=== PATIENT | female | born 1970 | race Caucasian/White ===

== ENCOUNTER → 2021-04-04 | Outpatient (CLI) | payer BC ==
--- NOTE | 2021-04-05 11:39 | MM ---
Reason for exam: screening (asymptomatic). Last mammogram was performed 5 years and 7 months ago. History: Patient is postmenopausal and is nulliparous. Physical Findings: A clinical breast exam by your physician is recommended on an annual basis and results should be correlated with mammographic findings. MG 3D Screening Mammo W/Cad Bilateral CC and MLO view(s) were taken. Prior study comparison: September 13, 2015, bilateral MG screening mammo w CAD. March 24, 2014, left breast MG work up mamm w CAD LT. The breast tissue is heterogeneously dense. This may lower the sensitivity of mammography. No significant changes when compared with prior studies. ASSESSMENT: Benign, BI-RAD 2 RECOMMENDATION: Routine screening mammogram of both breasts in 1 year.
== END | disposition home or self-care (01) ==
LOC: RADMAMWWP 15:51
PROVIDERS: ATTEND Internal Medicine Geriatric Medicine
DX: Z12.31 Encounter for screening mammogram for malignant neoplasm of breast (principal); Z78.0 Asymptomatic menopausal state
CPT/HCPCS: 77063; 77067

== ENCOUNTER → 2022-12-04 | Outpatient (CLI) | payer BC ==
--- NOTE | 2022-12-05 09:03 | MM ---
Reason for Exam: Screening (asymptomatic). Last mammogram was performed 1 year(s) and 8 month(s) ago. Patient History: Menarche at age 7. Patient has no children. Postmenopausal. Sister had ovarian cancer, age 57. Risk Values: Laine 5 year model risk: 1.4%. NCI Lifetime model risk: 10.1%. Prior Study Comparison: 03/24/2014 Left Diagnostic Mammogram, [facility]. 09/13/2015 Bilateral Screening Mammogram, [facility]. 04/04/2021 Bilateral Screening Mammogram, [facility]. Tissue Density: The breast tissue is heterogeneously dense. This may lower the sensitivity of mammography. Findings: Analyzed By CAD. There is no suspicious group of microcalcifications or new suspicious mass in either breast. Overall Assessment: Negative, BI-RAD 1 Management: Screening Mammogram of both breasts in 1 year. A clinical breast exam by your physician is recommended on an annual basis and results should be correlated with mammographic findings. Electronically signed and approved by: Tony Peralta D.O.
== END | disposition home or self-care (01) ==
LOC: RADMAMWWP 09:39
PROVIDERS: ATTEND Internal Medicine Geriatric Medicine
DX: Z12.31 Encounter for screening mammogram for malignant neoplasm of breast (principal); Z78.0 Asymptomatic menopausal state
CPT/HCPCS: 77063; 77067

== ENCOUNTER → 2023-01-02 | Outpatient (CLI) | payer BC ==
--- NOTE | 2023-01-02 14:42 | USB ---
Reason for Exam: Clinical finding. Patient History: Menarche at age 7. Patient has no children. Postmenopausal. Sister had ovarian cancer, age 57. Risk Values: Laine 5 year model risk: 1.4%. NCI Lifetime model risk: 10.1%. Technique: Method: Whole Breast Handheld. Prior Study Comparison: 09/13/2015 Bilateral Screening Mammogram, [facility]. 04/04/2021 Bilateral Screening Mammogram, [facility]. 12/04/2022 Bilateral MG 3D screening mammo w/cad, [facility]. Findings: The whole breast of both breasts, the axilla of both breasts and the retroareolar of both breasts were scanned. There is a 0.7 x 0.3 cm simple-appearing cyst at the 12:00 position 6 cm from nipple left breast. No additional cystic or solid areas are evident within the bilateral breasts.. Overall Assessment: Benign, BI-RAD 2 Management: Screening Mammogram of both breasts in 1 year. A clinical breast exam by your physician is recommended on an annual basis and results should be correlated with mammographic findings. This exam should not preclude additional follow-up of suspicious palpable abnormalities. Results were given to the patient verbally at the time of exam. Electronically signed and approved by: Boo Campa D.O. Radiologis
== END | disposition home or self-care (01) ==
LOC: RADUSWWP 13:48
PROVIDERS: ATTEND Internal Medicine Geriatric Medicine
DX: N64.4 Mastodynia (principal); Z78.0 Asymptomatic menopausal state

== ENCOUNTER → 2024-03-22 | Outpatient (CLI) | payer BC ==
--- NOTE | 2024-03-30 08:17 | MM ---
Reason for Exam: Screening (asymptomatic). Last mammogram was performed 1 year(s) and 4 month(s) ago. Patient History: Menarche at age 7. Patient has no children. Postmenopausal. Sister had ovarian cancer, age 57. Risk Values: Laine 5 year model risk: 1.5%. NCI Lifetime model risk: 9.7%. Prior Study Comparison: 09/13/2015 Bilateral Screening Mammogram, [facility]. 04/04/2021 Bilateral Screening Mammogram, [facility]. 12/04/2022 Bilateral MG 3D screening mammo w/cad, [facility]. Tissue Density: The breasts are heterogeneously dense, which may obscure small masses. Findings: Analyzed By CAD. The pattern is symmetrical. There is an increasing group of punctate calcifications in the posterior upper 12:00 left breast. Indication views recommended. Right breast:No suspicious groups of microcalcifications, spiculated or lobular masses, architectural distortion or other secondary signs of malignancy are mammographically apparent. Overall Assessment: Incomplete: need additional imaging evaluation, BI-RAD 0 Management: Diagnostic Mammogram of the left breast. A negative mammogram report should not preclude additional follow up of suspicious palpable abnormalities. Patient should continue monthly self breast exam. A clinical breast exam by your physician is recommended on an annual basis and results should be correlated with mammographic findings. Note on Laine scores and lifetime risk: 1. A Laine score greater than 3% is considered moderate risk. If this is the case, consider specialist referral to assess eligibility for a risk reducing agent. 2. If overall lifetime risk for the development of breast cancer is 20% or higher, the patient may qualify for future screening with alternating mammogram and breast MRI. Electronically signed and approved by: Boo Campa D.O. Radiologis
== END | disposition home or self-care (01) ==
LOC: RADMAMWWP 06:47
PROVIDERS: ATTEND Internal Medicine Geriatric Medicine
DX: Z12.31 Encounter for screening mammogram for malignant neoplasm of breast (principal); Z78.0 Asymptomatic menopausal state
CPT/HCPCS: 77063; 77067

== ENCOUNTER → 2024-04-12 | Outpatient (CLI) | payer BC ==
--- NOTE | 2024-04-12 09:20 | MM ---
Reason for Exam: Additional evaluation requested from abnormal screening. Last screening mammogram was performed less than 1 month ago. Patient History: Menarche at age 7. Patient has no children. Postmenopausal. Sister had ovarian cancer, age 57. Risk Values: Laine 5 year model risk: 1.5%. NCI Lifetime model risk: 9.7%. Prior Study Comparison: 02/17/2014 Bilateral Screening Mammogram, [facility]. 03/24/2014 Left Diagnostic Mammogram, [facility]. 09/13/2015 Bilateral Screening Mammogram, [facility]. 04/04/2021 Bilateral Screening Mammogram, [facility]. 12/04/2022 Bilateral MG 3D screening mammo w/cad, [facility]. 03/22/2024 Bilateral MG 3D screening mammo w/cad, [facility]. Tissue Density: Left: The breasts are heterogeneously dense, which may obscure small masses. Findings: Analyzed By CAD. Indeterminate microcalcifications upper slightly outer left breast 14 cm from the nipple. Tissue diagnosis is recommended. Overall Assessment: Suspicious, BI-RAD 4 Management: Stereotactic Core Biopsy of the left breast. . Results were given to the patient verbally at the time of exam. Patient should continue monthly self-breast exams. A clinical breast exam by your physician is recommended on an annual basis. This exam should not preclude additional follow-up of suspicious palpable abnormalities. Note on Laine scores and lifetime risk: 1. A Laine score greater than 3% is considered moderate risk. If this is the case, consider specialist referral to assess eligibility for a risk reducing agent. 2. If overall lifetime risk for the development of breast cancer is 20% or higher, the patient may qualify for future screening with alternating mammogram and breast MRI. Electronically signed and approved by: Irineo Payne M.D. Radiologis
== END | disposition home or self-care (01) ==
LOC: RADMAMWWP 08:15
PROVIDERS: ATTEND Internal Medicine Geriatric Medicine
DX: R92.332 Mammographic heterogeneous density, left breast (principal); R92.8 Other abnormal and inconclusive findings on diagnostic imaging of breast; Z78.0 Asymptomatic menopausal state
CPT/HCPCS: 77061; 77065

== ENCOUNTER → 2024-04-28 | Day surgery (SDC) | payer BC ==
--- NOTE | 2024-05-19 10:45 | MM ---
OPERATIVE REPORT DATE OF SERVICE: 04/28/24 PROCEDURE: Stereotactic core biopsy, left breast. PREPROCEDURE DIAGNOSIS: Microcalcifications of concern, left breast. POSTPROCEDURE DIAGNOSIS: Microcalcifications of concern, left breast. DESCRIPTION OF PROCEDURE: Following informed consent, the patient was brought to the stereotactic core biopsy room. She was positioned in the upright chair. A Director Process Engineering film was obtained of the left breast with a [id number] approach utilized. The lesion of concern was identified. The breast was prepped using chlorhexidine. 20 mL of 1% lidocaine was used to anesthetize the area of concern. a 9-gauge vacuum-assisted core rotating biopsy needle was driven to the correct corners. A pre-fire film was obtained. The needle was noted to be in the correct location. The needle was fired. Fourteen core biopsy specimens were obtained. Radiograph of the specimen revealed minimal calcifications; therefore, the needle was repositioned. The patient had additional core biopsies obtained, 13, and radiograph revealed that the calcifications of concern had been removed. [employer] top hat clip was placed. Post procedure, the area of concern was noted to be adequately sampled; however, the clip had migrated inferiorly, approximately 6cm. The patient tolerated the procedure in stable condition. She will follow up with Dr. Vaca next week. The specimen was sent to pathology. [facility]
--- NOTE | 2024-06-02 09:07 | WWHP ---
[facility] - HISTORY AND PHYSICAL HISTORY OF PRESENT ILLNESS: Lori is a 54-year-old female, status post routine screening mammogram, which recommended a repeat left breast mammogram. I do not have the bilateral mammogram results report, but I do have the report of the repeat left breast mammogram from 04/12/2024. This revealed indeterminate microcalcifications slightly at her left breast 14 cm from the nipple. Tissue diagnosis was recommended. She does not feel any lumps, masses, or nodules of concern in either breasts. She was not complaining of any skin changes. She has not had any surgery on her breast. Caffeine: Negative. Nicotine: Negative. Chocolate: Daily. control pill/hormones: She stopped control pills in her 20s. FAMILY HISTORY: Sister, ovarian cancer, at 60. Genetic testing was not done. HORMONAL HISTORY: Menarche: 7. G0. Breasts negative. Menopause: 49. SOCIAL HISTORY: Nicotine: Negative. Alcohol: Negative. Drugs: Negative. MEDICAL HISTORY: 1. Type 2 diabetes. 2. Hypertension. 3. High cholesterol. 4. Depression. SURGICAL HISTORY: Endometrial surgery. REVIEW OF SYSTEMS: HEENT: Negative. BREASTS: As noted. CARDIOVASCULAR: Negative. RESPIRATORY: Negative. GI: Negative. : Negative. MUSCULOSKELETAL: Negative. SKIN: Eczema on forehead. NEUROLOGIC: Negative. PSYCH: Depression. ENDOCRINE: Diabetes. HEMATOLOGY: Negative. ALLERGIES: Negative. PHYSICAL EXAMINATION: CONSTITUTIONAL: Normal. HEENT: Normal. NECK: Normal. RESPIRATORY: Normal. CARDIOVASCULAR: Regular rate and rhythm. ABDOMEN: Soft, nontender. SKIN: Normal turgor. BREASTS: Left breast: Slightly larger than right breast with grade 3 ptosis bilaterally. No dominant masses or nodules of concern. Left axilla: No adenopathy of concern. Right breast: Fibrocystic. There is no dominant masses or nodules of concern. Right axilla: No adenopathy of concern. IMPRESSION: Radiographic abnormality, left breast. PLAN: Left breast stereotactic core biopsy. MMODL / IJN: [id number] /
--- NOTE | 2024-06-02 09:07 | OP ---
OPERATIVE REPORT DATE OF SERVICE : 04/28/2024 PROCEDURE: Stereotactic core biopsy, left breast. PREPROCEDURE DIAGNOSIS: Microcalcifications of concern, left breast. POSTPROCEDURE DIAGNOSIS: Microcalcifications of concern, left breast. DESCRIPTION OF PROCEDURE: Following informed consent, the patient was brought to the stereotactic core biopsy room. She was positioned in the upright chair. A Marketing Project Coordinator film was obtained of the left breast with a [id number] approach utilized. The lesion of concern was identified. The breast was prepped using chlorhexidine. 20 mL of 1% lidocaine was used to anesthetize the area of concern. A 9-gauge vacuum-assisted core rotating biopsy needle was driven to the correct corners. A pre-fire film was obtained. The needle was noted to be in the correct location. The needle was fired. Fourteen core biopsy specimens were obtained. Radiograph of the specimen revealed minimal calcifications; therefore, the needle was repositioned. The patient had additional core biopsies obtained, 13, and radiograph revealed that the calcifications of concern had been removed. [employer] top hat clip was placed. Post procedure, the area of concern was noted to be adequately sampled; however, the clip had migrated inferiorly, approximately 6 cm. The patient tolerated the procedure in stable condition. She will follow up with Dr. Vaca next week. The specimen was sent to Pathology. MMODL / IJN: [id number] /
== END ==
LOC: RADMAMWWP 12:00
PROVIDERS: ATTEND Surgery
DX: R92.8 Other abnormal and inconclusive findings on diagnostic imaging of breast